=== PATIENT | male | born 1990 | race Caucasian/White ===

== ENCOUNTER 2020-11-01 09:43 | Day surgery (SDC) | payer BC ==
[2020-10-29 09:35] LABS: BASOPHILS % (AUTO) 1 % (0-1); EOSINOPHILS % (AUTO) 3 % (1-7); LYMPHOCYTES % (AUTO) 42 % (22-44); MEAN CORPUSCULAR HEMOGLOBIN 31.2 pg (27.5-34.5); MEAN CORPUSCULAR HGB CONC 33.5 g/dL (33.2-36.2); MEAN PLATELET VOLUME 8.4 fL (7.4-10.4); MONOCYTES % (AUTO) 7 % (2-9); NEUTROPHILS % (AUTO) 47 % (42-75); PLATELET COUNT 273 x10^3/uL (130-400); RED BLOOD COUNT 5.14 x10^6/uL (4.38-5.82); RED CELL DISTRIBUTION WIDTH 14.2 % (9.4-14.8)
[2020-10-29 09:38] LABS: ANION GAP 5 mmol/L (5-15); CALCIUM 9.4 mg/dL (8.5-10.1); CHLORIDE 108 mmol/L (98-107); CREATININE 1.06 mg/dL (0.7-1.3)
[2020-10-29 09:39] LABS: MD NO
[~2020-11-01] VITALS: Ht 190.5 cm; Wt 117.3 kg
[2020-11-01 10:21] VITALS: BP 136/99
[2020-11-01] MEDS ORDERED: CEFAZOLIN PMX 1GM/50ML 50 ML ONE (10:26)
[2020-11-01] MEDS ORDERED: CHLORHEXIDINE 15 ML UDC ONE (10:26)
[2020-11-01] MEDS ORDERED: CEFAZOLIN 1,000 MG in SODIUM CHLORIDE 0.9% 50 ML IV SCH ×2 (10:30→11:00)
[2020-11-01] MEDS ORDERED: CHLORHEXIDINE 15 ML UDC MM ONE (10:30)
[2020-11-01] MEDS ORDERED: LACTATED RINGERS 1,000 ML IV SCH (11:00)
[2020-11-01] MEDS ORDERED: CEFAZOLIN PMX 1GM/50ML 50 ML IV ONE (11:30)
[2020-11-01] MEDS ORDERED: NEOSPORIN OINT, 15GM ONE (12:38)
[2020-11-01] MEDS ORDERED: BACITRACIN 50,000 UNIT ONE (12:38)
[2020-11-01] MEDS ORDERED: VANCOMYCIN 1,000 MG ONE (12:38)
[2020-11-01] MEDS ORDERED: EPINEPHRINE 1 MG/ML, 1ML ONE (12:38)
[2020-11-01] MEDS ORDERED: BUPIVACAINE/PF 0.5% ONE (12:38)
[2020-11-01] MEDS ORDERED: MIDAZOLAM 1 MG/ML, 2ML ONE (12:55)
[2020-11-01] MEDS ORDERED: FENTANYL PF 250 MCG/5ML ONE (12:56)
[2020-11-01] MEDS ORDERED: PROPOFOL 10 MG/ML, 20ML ONE (13:04)
[2020-11-01] MEDS ORDERED: ROCURONIUM 10 MG/ML,10ML ONE (13:04)
[2020-11-01] MEDS ORDERED: THROMBIN 5,000 UNIT VIAL TP ONE (13:25)
[2020-11-01] MEDS ORDERED: BUPIVACAINE/PF-EPI 0.5% 1:200K INFIL ONE (13:25)
[2020-11-01] MEDS ORDERED: BACITRACIN 50,000 UNIT IM ONE (13:25)
[2020-11-01] MEDS ORDERED: MEPERIDINE/PF 25MG/0.5ML IVPush PRN (13:30)
[2020-11-01] MEDS ORDERED: OXYcodone 5 MG/5 ML ORAL.SOL UDC PO PRN (13:30)
[2020-11-01] MEDS ORDERED: LABETALOL 5MG/ML, 20ML IV PRN (13:30)
[2020-11-01] MEDS ORDERED: ACETAMINOPHEN 325 MG TABLET PO PRN (13:30)
[2020-11-01] MEDS ORDERED: ALBUTEROL SULFATE 2.5 MG/3 ML NPPB PRN (13:30)
[2020-11-01] MEDS ORDERED: PROMETHAZINE 25 MG/ML, 1ML IVPush PRN (13:30)
[2020-11-01] MEDS ORDERED: DIPHENHYDRAMINE 50 MG/ML, 1ML IVPush PRN (13:30)
[2020-11-01] MEDS ORDERED: HYDROmorphone 1 MG/ML, 1ML INJ IVPush PRN (13:30)
[2020-11-01] MEDS ORDERED: DIAZEPAM 5 MG/ML, 2ML IVPush PRN (13:30)
[2020-11-01] MEDS ORDERED: ONDANSETRON 2MG/ML, 2ML IVPush PRN (13:30)
[2020-11-01] MEDS ORDERED: PROMETHAZINE 12.5 MG SUPP PR PRN (13:30)
[2020-11-01] MEDS ORDERED: hydrALAzine 20 MG/ML, 1ML IV PRN (13:30)
[2020-11-01] MEDS ORDERED: EPHEDRINE 50 MG/ML, 1ML IVPush PRN (13:30)
[2020-11-01] MEDS ORDERED: MIDAZOLAM 1 MG/ML, 2ML IV PRN (13:30)
[2020-11-01] MEDS ORDERED: SUGAMMADEX 200 MG/2 ML IVPush ONE (14:04)
[2020-11-01] MEDS ORDERED: ONDANSETRON 2MG/ML, 2ML ONE (14:04)
[2020-11-01] MEDS ORDERED: DEXAMETHASONE 4 MG/ML, 5ML ONE (14:05)
[2020-11-01] MEDS ORDERED: FENTANYL PF 100 MCG/2ML ONE ×2 (14:12→14:57)
[2020-11-01] MEDS ORDERED: OXYcodone 5 MG/5 ML ORAL.SOL UDC ONE (14:58)
[2020-11-01] MEDS ORDERED: MEPERIDINE/PF 25MG/ML,1ML ONE (15:00)
[2020-11-01] MEDS: FENTANYL PF 100 MCG/2ML IV PRN ×2 (15:15→15:41)
[2020-11-01] MEDS ORDERED: DIAZEPAM 5 MG/ML, 2ML ONE (15:41)
== END 2020-11-01 18:40 | disposition home or self-care (01) ==
LOC: OUT 09:43
PROVIDERS: ATTEND Orthopaedic Surgery
DX: M51.16 Intervertebral disc disorders with radiculopathy, lumbar region (principal); M48.061 Spinal stenosis, lumbar region without neurogenic claudication; F17.200 Nicotine dependence, unspecified, uncomplicated; Z20.828 Contact with and (suspected) exposure to other viral communicable diseases
CPT/HCPCS: 36415; 63030; 63035; 72100; 80048; 85025; J0171; J0690; J1100; J2175; J2250; J2405; J2704; J3010; J3360; J3370; J7120; U0003